=== PATIENT | male | born 1985 | race Caucasian/White ===

== ENCOUNTER → 2019-10-04 | Outpatient (CLI) | payer OTHER ==
--- NOTE | 2019-10-04 10:19 | Diagnostic Imaging Report ---
Left knee MRI without contrast. History: Knee pain. Instability. Decreased range of motion. Trauma Comparison: None. Technique: Multiplanar multi-sequence MRI of the knee without contrast. Findings: Medial compartment: No medial meniscus tear. Medial compartmental articular cartilage surfaces are intact. Mild sprain of the proximal medial collateral ligament with a mild amount of adjacent soft tissue edema. The majority of the fibers are intact. Lateral compartment: No meniscal tear or cartilage abnormality. The LCL complex is normal. Intercondylar notch: The ACL and PCL are intact. Patellofemoral compartment: No chondromalacia or patellar dislocation. Extensor mechanism: The quadriceps and patellar tendons are normal. Chronic appearing fragmentation of the bone at the anterior proximal tibia at the patellar tendon insertion site with mild adjacent soft tissue edema likely due to chronic Luther-Schlatter disease with mild adjacent bursitis. Other findings: There is a small joint effusion and mild synovitis. There is no acute fracture, subluxation or avascular necrosis. Small lobulated septated Groves's cyst. IMPRESSION: Mild sprain of the medial collateral ligament. The majority of the fibers are intact. No meniscal tear or cruciate ligament tear. Chronic appearing fragmentation of the bone at the anterior proximal tibia at the patellar tendon insertion site with mild adjacent soft tissue edema likely due to chronic Luther-Schlatter disease with mild adjacent bursitis. Signed by: Dr. Shay Padron M.D. on 10/04/2019 10:16 AM
== END ==
LOC: MRI 07:40
PROVIDERS: ATTEND Family Medicine
DX: M25.362 Other instability, left knee (principal)